=== PATIENT | male | born 1945 | race Caucasian/White ===

== ENCOUNTER → 2018-11-29 10:21 | Outpatient (CLI) | payer MEDICARE | END | disposition home or self-care (01) | LOC: D.LABREF 10:21 | PROVIDERS: ATTEND Orthopaedic Surgery | DX: M19.011 Primary osteoarthritis, right shoulder (principal) ==

== ENCOUNTER 2018-12-03 17:01 | Inpatient (IN) | payer MEDICARE, OTHER ==
[~2018-12-03] VITALS: Ht 177.8 cm; Wt 108.9 kg
[2018-12-20] MEDS ORDERED: LIPITOR10 MG PO (08:28)
[2018-12-20] MEDS ORDERED: PLAVIX75 MG PO (08:28)
[2018-12-20] MEDS ORDERED: DILTIAZEM 24HR120 M3 PO (08:29)
[2018-12-20] MEDS ORDERED: GLUCOPHAGE850 MG PO (08:30)
[2018-12-20] MEDS ORDERED: COZAAR25 MG PO (08:30)
[2018-12-20] MEDS ORDERED: LOVENOX30 MG/0.3 SC (08:31)
[2018-12-20 09:49] LABS: CALC OSMOLALITY 278 mosm/kg (275-300); CALCIUM 8.6 mg/dL (8.5-10.1); CARBON DIOXIDE 29.8 mmol/L (21.0-32.0); CHLORIDE - SERUM 103 mmol/L (98-107); CREATININE - SERUM 0.8 mg/dL (0.6-1.3); GLUCOSE 107 mg/dL (74-106); POTASSIUM - SERUM 4.5 mmol/L (3.5-5.1); SODIUM 140 mmol/L (136-145); UREA NITROGEN 12 mg/dL (7-18); eGFR NON AFRICAN AMERICAN > 90 mL/min (90-120)
[2018-12-20 10:04] LABS: BASOPHILS 0.7 % (0-2); EOSINOPHILS 3.9 % (0-7); HEMATOCRIT 51.9 % (42.0-54.0); HEMOGLOBIN 17.5 g/dL (13.5-17.5); IMMATURE GRANULOCYTES 0.6 % (0-5); LYMPHOCYTES 20.8 % (15-50); MCH 31.4 pg (26.0-34.0); MCHC 33.7 g/dL (31.0-37.0); MEAN PLATELET VOLUME 9.3 fL (7.4-10.4); MONOCYTES 12.1 % (2-11); NEUTROPHILS 61.9 % (40-80); PLATELET COUNT 226 10x3/uL (130-400); RBC 5.58 10x6/uL (4.20-6.10); RDW 13.2 % (11.5-14.5)
[2018-12-20 10:09] LABS: APPEARANCE CLEAR (CLEAR); BILIRUBIN NEGATIVE (NEGATIVE); COLOR YELLOW (YELLOW); GLUCOSE NEGATIVE (NEGATIVE); KETONE NEGATIVE (NEGATIVE); NITRITE NEGATIVE (NEGATIVE); PROTEIN NEGATIVE (NEGATIVE); SPECIFIC GRAVITY 1.015 (1.005-1.020); UROBILINOGEN NORMAL (NORMAL)
[2018-12-20 11:16] LABS: APTT 30.9 SECONDS (22.8-39.4); INR 0.93 (0.85-1.17)
[2018-12-21] VITALS (16 sets, daily range): BP systolic 112–147; BP diastolic 51–88; BMI 33.7; BMI 34.5
--- NOTE | 2018-12-21 13:55 | OP ---
PATIENT NAME: CHAPARRO GARLAND MEDICAL RECORD: [id number] :49 LOCATION:D.[facility] ADMISSION DATE:12/21/18 SURGEON: MATT ALTMAN DO DATE OF OPERATION: 12/21/2018 PROCEDURE PERFORMED: Right reverse total shoulder arthroplasty. PREOPERATIVE DIAGNOSIS: Right shoulder rotator cuff arthropathy. POSTOPERATIVE DIAGNOSIS: Right shoulder rotator cuff arthropathy. INDICATIONS: Mr. Garland is a 73-year-old male with right shoulder pain and loss of strength for quite some time. He was tired of dealing with it and wanted something done. On x-ray, he had a very high riding humeral. It was up to the acromion and almost articulating with it. I informed him that if his rotator cuff is gone then we would need to do a reverse total shoulder and the risk of it would be infection, bleeding, fracture, damage to nerves and vessels, need for further surgery, blood clots, and even , failure of implant. He was okay with that and signed the consent. SURGEON: Matt Altman DO STICKER OPERATOR: Jaswinder Tariq, advanced nurse practitioner. DESCRIPTION OF PROCEDURE: The patient was given a block by anesthesia in the preoperative area and taken to the operative suite, laid in supine position, sedated and intubated. The patient was given 2 grams Ancef and 80 mg of gentamicin preoperatively. The patient was then placed in beach chair position and he was prepped and draped in sterile fashion. A timeout was performed and everyone was in agreement with the correct side, site, patient and procedure. We then began over the deltopectoral interval first with a 10-blade and then with a plasma blade. Dissection was made down to the deltopectoral interval and this was opened up and the humerus was exposed. The proximal centimeter of the pec was removed. Once the humeral head was exposed, the canal was entered and clavipectoral fascia had been excised as well and the humeral head was exposed. The guide was then put in through the humeral canal and then the humeral head was cut. When the humeral head was then cut, the bone was removed and glenoid was exposed. Labrum was removed off the glenoid and the centering pin was used and then a reamer. The baseplate was put on and 3 peripheral screws were placed. A 40 central screw with 22, 26, and 18 peripheral screws were placed and secured in place. The lateralized sphere was then impacted on and screwed into place. The humeral neck was then recut and began broaching up to 5. This was trialed with a tray and a 6 poly, fit very well. There was good appropriate amount of laxity in the conjoined tendon and the deltoid fibers and no shucking. This was then dislocated and removed and the site was irrigated and then the actual implant was impacted into place. A 6 poly was then placed and the shoulder was reduced and again had good range of motion and conjoined tendon was taut as well as the deltoid fibers. The shoulder was then irrigated with Bactisure and normal saline, a liter of each and then Surgicel powder, tobramycin and vancomycin powder were placed and the drain was placed. The skin was then closed with 2-0 Vicryl in inverted interrupted fashion, 4-0 Monocryl ran on the skin and Prineo glue on the skin and then the drain was secured with 2 Tegaderms. The patient was then awakened and taken to recovery room in stable condition. OPERATIVE REPORT [id number] CHAPARRO GARLAND BLOOD LOSS: Approximately 200 mL. COMPLICATIONS: None. TRANSINT:[id number] Voice Confirmation ID: [id number] DOCUMENT ID: [id number] MATT ALTMAN DO at 1355 CC: [id number] DICTATION DATE: 12/21/18 1209 CHILD WATCH ATTENDANT: 12/21/18 1346 ADM IN [place] [id number] [place] [address]
[2018-12-22 01:12] VITALS: BP 136/80
[2018-12-22 05:03] VITALS: BP 145/81
--- NOTE | 2018-12-22 05:19 | NUR ---
I have reviewed this patient and I concur with the Shift Assessment completed by the Licensed Practical Nurse today this shift.
[2018-12-22 05:42] LABS: BASOPHILS 0.2 % (0-2); EOSINOPHILS 0 % (0-7); HEMATOCRIT 46.6 % (42.0-54.0); HEMOGLOBIN 15.4 g/dL (13.5-17.5); IMMATURE GRANULOCYTES 0.3 % (0-5); LYMPHOCYTES 6.3 % (15-50); MCH 30.7 pg (26.0-34.0); MCV 92.8 fL (80.0-100.0); MEAN PLATELET VOLUME 9.2 fL (7.4-10.4); MONOCYTES 8.1 % (2-11); NEUTROPHILS 85.1 % (40-80); PLATELET COUNT 188 10x3/uL (130-400); RBC 5.02 10x6/uL (4.20-6.10); RDW 13.3 % (11.5-14.5)
[2018-12-22 06:07] LABS: CALC OSMOLALITY 284 mosm/kg (275-300); CARBON DIOXIDE 27.1 mmol/L (21.0-32.0); CHLORIDE - SERUM 106 mmol/L (98-107); CREATININE - SERUM 0.8 mg/dL (0.6-1.3); POTASSIUM - SERUM 4.5 mmol/L (3.5-5.1); SODIUM 141 mmol/L (136-145); UREA NITROGEN 9 mg/dL (7-18); eGFR NON AFRICAN AMERICAN > 90 mL/min (90-120)
[2018-12-22 06:15] LABS: GLUCOSE 180 mg/dL (74-106)
[2018-12-22 06:16] LABS: WBC 14.5 10x3/uL (4.8-10.8)
--- NOTE | 2018-12-22 07:57 | NUR ---
PT RESTING IN BED. DENIES PAIN. NO S/S OF ACUTE DISTRESS. CL IN PLACE.
[2018-12-22 09:46] VITALS: BP 131/85
[2018-12-22 12:16] VITALS: Ht 177.8 cm; Wt 108.9 kg
[2018-12-22 13:49] VITALS: BP 118/60
--- NOTE | 2018-12-22 16:22 | MORECARE ---
CASE MANAGEMENT DISCHARGE SUMMARY PATIENT: CHAPARRO COLON UNIT: [id number] ADM DATE: 12/21/18 AGE: 73 : 47 SEX: M ROOM/BED: D.2210 AUTHOR: PATRICIA NEAL PHYSICIAN: REFERRING PHYSICIAN: MATT ALTMAN DO DATE OF SERVICE: 12/22/18 Discharge Plan Patient Name: CHAPARRO COLON Facility: [facility]:[place] : 1945 Planned Disposition: Home or Self Care Anticipated Discharge Date: Discharge Date: Expected LOS: Initial Reviewer: [email or web address] Initial Review Date: 12/21/2018 Generated: 12/22/18 5:21 pm Patient Name: CHAPARRO COLON Page [id number] at 1622 All edits/amendments must be made on the electronic document DICTATION DATE: 12/22/181620 COMMERCIAL BAKER HELPER: DANIELLE 12/22/181620 RPT#: [id number] DC DATE: STATUS: ADM IN [facility] [address] [place] [address] END OF REPORT
--- NOTE | 2018-12-22 16:31 | MORECARE ---
CASE MANAGEMENT DISCHARGE SUMMARY PATIENT: CHAPARRO COLON UNIT: [id number] ADM DATE: 12/21/18 AGE: 73 : 47 SEX: M ROOM/BED: D.2210 AUTHOR: VALDOC PHYSICIAN: REFERRING PHYSICIAN: MATT ALTMAN DO DATE OF SERVICE: 12/22/18 Discharge Plan Patient Name: CHAPARRO COLON Facility: [facility]:[place] : 1945 Planned Disposition: Home or Self Care Anticipated Discharge Date: Discharge Date: Expected LOS: Initial Reviewer: [email or web address] Initial Review Date: 12/21/2018 Generated: 12/22/18 5:30 pm Comments DCP- Discharge Planning Updated by [email or web address]: Fernanda Green on 12/22/18 3:[address] Patient Name: CHAPARRO COLON Admission Status: Elective Accout number: [id number] Admission Date: 12-21-2018 : 1945 Admission Diagnosis: Attending: MATT ALTMAN Current LOS: 1 Anticipated DC Date: Planned Disposition: Home or Self Care Primary Insurance: [employer] CHOICE PPO MCR [employer] Discharge Planning Comments: CM met with patient to complete initial dc planning assessment. CM educated patient on the CM role and verbal consent given by patient to complete assessment. Patient lives at home with his where he is independent with his care. At discharge patient plans to return home and feels this is a safe discharge. CM discussed availability of home health, rehab services, and medical equipment. His son will be the one to drive him home tomorrow. He uses a CPAP at home "he owns it". Patient denied known discharge needs at this time. CM will continue to follow and will assist as needed with dc plans/needs. Business Management Intern: Fernanda Green DCPIA - Discharge Planning Initial Assessment Updated by [email or web address]: Fernanda Green on 12/22/18 4:27 pm * Is the patient Alert and Oriented? Yes * How many steps to enter\\exit or inside your home? * PCP DR DOVER * Pharmacy [facility] * Preadmission Environment Home with Family * ADLs Independent * Equipment None * List name and contact numbers for known caregivers / representatives who currently or will assist patient after discharge: ODILON Little) [phone] * Verbal permission to speak to the caregivers and representatives has been obtained from the patient. Yes * Community resources currently utilized None * Additional services required to return to the preadmission environment? No * Can the patient safely return to the preadmission environment? Yes * Has this patient been hospitalized within the prior 30 days at any hospital? No Last DP export: 12/22/18 3:22 p Patient Name: CHAPARRO COLON Page [id number] at 1631 All edits/amendments must be made on the electronic document DICTATION DATE: 12/22/18 163 CONSERVATION COORDINATOR: DANIELLE 12/22/18 163 RPT#: [id number] DC DATE: STATUS: ADM IN [facility] [address] [place] [address] END OF REPORT
[2018-12-22] MEDS ORDERED: KEFLEX500 MG PO (17:19)
[2018-12-22] MEDS ORDERED: OXYCODONE HCL5 M1 PO (17:19)
[2018-12-22 17:47] VITALS: BP 111/67
--- NOTE | 2018-12-22 18:08 | NUR ---
DC INSTRUCTIONS AND EDUCATION DONE WITH PT AND . DC IV WITH TIP INTACT. BRACE APPLIED TO R ARM. ALL BELONGINGS CARRIED DOWN BY . NO S/S OF ACUTE DISTRESS. BRADDISHER WHEELED PT OFF THE FLOOR.
--- NOTE | 2018-12-23 08:15 | MORECARE ---
CASE MANAGEMENT DISCHARGE SUMMARY PATIENT: CHAPARRO COLON UNIT: [id number] ADM DATE: 12/21/18 AGE: 73 : 47 SEX: M ROOM/BED: D.2210 AUTHOR: VALDOC PHYSICIAN: REFERRING PHYSICIAN: MATT ALTMAN DO DATE OF SERVICE: 12/23/18 Discharge Plan Patient Name: CHAPARRO COLON Facility: [facility]:[place] : 1945 Planned Disposition: Home or Self Care Anticipated Discharge Date: Discharge Date: 12/22/2018 Expected LOS: 0 Initial Reviewer: [email or web address] Initial Review Date: 12/21/2018 Generated: 12/23/18 9:15 am Comments DCP- Discharge Planning Updated by [email or web address]: Fernanda Green on 12/22/18 3:[address] Patient Name: CHAPARRO COLON Admission Status: Elective Accout number: [id number] Admission Date: 12-21-2018 : 1945 Admission Diagnosis: Attending: MATT ALTMAN Current LOS: 1 Anticipated DC Date: Planned Disposition: Home or Self Care Primary Insurance: [employer] CHOICE PPO MCR [facility] Discharge Planning Comments: CM met with patient to complete initial dc planning assessment. CM educated patient on the CM role and verbal consent given by patient to complete assessment. Patient lives at home with his where he is independent with his care. At discharge patient plans to return home and feels this is a safe discharge. CM discussed availability of home health, rehab services, and medical equipment. His son will be the one to drive him home tomorrow. He uses a CPAP at home "he owns it". Patient denied known discharge needs at this time. CM will continue to follow and will assist as needed with dc plans/needs. Human Resources Associate: Fernanda Green DCPIA - Discharge Planning Initial Assessment Updated by [email or web address]: Fernanda Green on 12/22/18 4:27 pm * Is the patient Alert and Oriented? Yes * How many steps to enter\\exit or inside your home? * PCP DR DOVER * Pharmacy [facility] * Preadmission Environment Home with Family * ADLs Independent * Equipment None * List name and contact numbers for known caregivers / representatives who currently or will assist patient after discharge: ODILON () [phone] * Verbal permission to speak to the caregivers and representatives has been obtained from the patient. Yes * Community resources currently utilized None * Additional services required to return to the preadmission environment? No * Can the patient safely return to the preadmission environment? Yes * Has this patient been hospitalized within the prior 30 days at any hospital? No Last DP export: 12/22/18 3:31 p Patient Name: CHAPARRO COLON Page 57766 at 0815 All edits/amendments must be made on the electronic document DICTATION DATE: 12/23/18814 STRINGS TEACHER: DANIELLE 12/23/18814 RPT#: [id number] DC DATE:12/22/18 STATUS: DIS IN [facility] [address] [place] [address] END OF REPORT
== END 2018-12-22 18:09 | disposition home or self-care (01) | DRG 483 ==
LOC: D.MS 12-21 07:05 → D.SDCHOLD 12-21 07:05 → D.MS 12-21 12:58
PROVIDERS: Internal Medicine Nephrology; ADMIT Orthopaedic Surgery; ATTEND Orthopaedic Surgery
PROC: 0RRJ00Z Replacement of Right Shoulder Joint with Reverse Ball and Socket Synthetic Substitute, Open Approach (ICD-10-PCS; principal; 2018-12-21 09:00)
DX: M75.101 Unspecified rotator cuff tear or rupture of right shoulder, not specified as traumatic (principal); E11.9 Type 2 diabetes mellitus without complications; I10 Essential (primary) hypertension; I25.10 Atherosclerotic heart disease of native coronary artery without angina pectoris

== ENCOUNTER 2020-08-16 09:07 | Day surgery (SDC) | payer OTHER ==
[~2020-08-16] VITALS: Ht 177.8 cm; Wt 112.0 kg
--- NOTE | ~2020-08-16 | TEE ---
PATIENT:CHAPARRO COLON MEDICAL RECORD: [id number] LOCATION:[facility] AGE OF PATIENT: 75 ADMISSION DATE: 08/16/20 SEX: M REFERRING PHYSICIAN: INTERPRETING PHYSICIAN: EDUARDO AHUJA MD TRANSESOPHAGEAL ECHOCARDIOGRAM Date: 08/16/20 VIDA CHARGE Y INDICATIONS: ASSESS AORTIC VALVE HX OF AVR PREMEDICATIONS: PATIENT'S RESPONSE PROCEDURE DOPPLER MEASUREMENTS: LVIT LA PA RA LVOT RVOT Asc. Ao AV Gradient Peak AV Mean AV Area MV Gradient Peak MV Mean MV Area INTERPRETATION: Doppler: 2-D: COLOR FLOW DOPPLER NORMAL SALINE STUDY: MISCELLANOUS: DIAGNOSIS: PLAN: Paymaster Of Purses:3 Dr. Sanches Pull Tab Dealer: Aj CHO COMMENTS: DATE OF SERVICE: 08/16/2020 TRANSESOPHAGEAL NOTE TECHNIQUE: After general sedation via TIVA via anesthesia, the transesophageal Omniplane probe was placed in the distal esophagus and proximal stomach without difficulty. FINDINGS: As follows: LVH is present. LV internal dimensions were normal. TRANSESOPHAGEAL ECHOCARDIOGRAM REPORT [id number] CHAPARRO COLON Wall motion is normal. EF is greater than or equal to 55%. Tissue prosthetic aortic valve was noted with good valve excursion. No evidence of thrombus. No significant AI. Left atrium appears normal. Mitral valve appears normal. Mild MR. Right-sided chambers appear grossly normal. Trace to mild TR by color flow imaging. TRANSINT:[id number] Voice Confirmation ID: [id number] DOCUMENT ID: [id number] EDUARDO AHUJA MD CC: [id number] DICTATION DATE: 08/16/20 1138 THERMODYNAMICS ENGINEER: 08/17/20 0723 [facility] [place] 08/16/20 [place] [id number] [place] [id number]
--- NOTE | ~2020-08-16 | HEMODYNAMI ---
PATIENT:CHAPARRO COLON MEDICAL RECORD: [id number] : [birth year] LOCATION:[facility] ADMISSION DATE: 08/16/20 Generatedon:111:42 Patient name: CHAPARRO COLON Patient #: [id number] SSN: [id number] : 1945 Date of study: 08/16/2020 Page: Of Hemodynamic Procedure Report Patient Data Patient Demographics Procedure consent was obtained First Name: CHAPARRO Gender: Male Last Name: ISAIAH : 1945 Middle Initial: L Age: 75 year(s) Patient #: [id number] Race: SSN: [id number] Additional ID: [id number] Contact details Address: [address] [place] [address] State: [facility] [place] Zip code: [address] Past Medical History Allergies: No known allergies Admission Admission Data Admission Date: 08/16/2020 Admission Time: 9:07 Arrival Date: 08/16/2020 Arrival Time: 0:00 Admit Source: Other Insurance Payor: Private health insurance [facility] #: [id number] Height (in.): 70 BSA: 2.27 (m2) Height (cm.): 177.8 BMI: 35.01 (kg/m2) Weight (lbs.): 244 Weight (kg.): 110.68 Lab Results Lab Result Date: 08/16/2020 Lab Result Time: 0:00 Biochemistry Name Units Result Min Max BUN mg/dl 11 --(-*--)-- 7 18 Creatinine mg/dl 0.9 --(-*--)-- 0.6 1.3 eGFR ml/min 88.58184 -*(----)-- 90 120 NONAFRICAN CBC Name Units Result Min Max Hematocrit % 54.4 --(----)*- 42 54 Hemoglobin g/dl 17.6 --(----)*- 13.5 17.5 Procedure Procedure Types Cath Procedure Diagnostic Procedure VIDA Procedure Description Procedure Date Procedure Date: 08/16/2020 Procedure Start Time: 10:39 Procedure Staff Name Function Beto Ruiz MD Performing Physician Bacilio Puente RN Nurse Smiley Jimenez RT Monitor Julianna Bedolla RT Scrub Ren Buchanan CRNA Additional personnel Ubaldo Carrillo Gang Tailer Procedure Data Cath Procedure Estimated blood loss: 0 ml Procedure Complications No complications Procedure Medications Medication Administration Route Dosage 0.9% NaCl I.V. 100 ml/hr Oxygen etCO2 Nasal cannula 5 l/min Refer to Anesthesia Notes for Sedation Medications Hemodynamics Rest BSA: 2.27 (m2) HGB: 17.6 (g/dl) O2 Consumption: Estimated: 272.52 (ml/min) O2 Consumption indexed: Estimated:120.05 (ml/min/m) Heart Rate: 83 (bpm) Snapshots Pre Cath Intra NCS Post Cath Vital Signs Time Heart Resp SPO2 etCO2 NIBP (mmHg) Rhythm Pain Sedation Rate (ipm) (%) (mmHg) Status Level (bpm) 11:19:04 74 12 97 34.4 153/82(133) NSR 0 (11) 10(A) , No pain 11:23:16 76 16 97 32.9 151/83(123) NSR 0 (11) 10(A) , No pain 11:27:26 85 15 97 34.4 144/76(107) NSR 0 (11) 10(A) , No pain 11:31:33 97 14 93 12.7 156/93(115) NSR 0 (11) 8(A) , No pain 11:35:53 95 12 92 26.2 149/63(104) NSR 0 (11) 9(A) , No pain 11:41:18 88 24 95 21.7 135/67(95) NSR 0 (11) 9(A) , No pain Medications Time Medication Route Dose Verified Delivered Reason Notes Effective ness by by 11:19:26 0.9% NaCl I.V. 100 Bacilio Bacilio Per ml/hr Cindi Puente physician RN RN 11:19:38 Oxygen etCO2 5 Bacilio Bacilio for low Nasal l/min Cindi Puente 02 sats cannula RN RN 11:27:47 Refer to Bacilio Bacilio for Anesthesia Cindi Puente sedation Notes for RN RN Sedation Medications Procedure Log Time Note 10:41:23 Informed consent obtained and on chart 10:41:39 Arrival Date: 08/16/2020 12:00:00 AM 10:41:40 Admit Source: Other 10:41:42 Insurance Payor : Private health insurance 10:42:19 Patient Height : 70 inches 10:42:22 Patient Weight : 244 lbs 10:44:57 ACC Patient presents with Stable Angina CCS Anginal Class 2--Slight limitation of ordinary activity. 10:45:01 Procedure Status VIDA. 10:45:03 Time tracking: Regular hours (M-F 7:00 - 5:00) 10:45:13 Plan of Care:Hemodynamics will remain stable., Cardiac rhythm will remain stable., Comfort level will be maintained., Respiratory function will remain adequate., Patient/ family verbilizes understanding of procedure., Procedure tolerated without complication., Recovers from procedure without complications.. 10:45:21 H&P Date Dictated: 08/07/2020 Within 30 days and on chart.. 10:45:24 Family in waiting room. 10:45:25 Patient NPO since Midnight. 10:45:33 Patient allergic to No known allergies 10:46:46 Lab Result : Creatinine 0.9 mg/dl 10:46:46 Lab Result : BUN 11 mg/dl 10:46:46 Lab Result : eGFR NONAFRICAN 88.98120 ml/min 10:46:46 Lab Result : Hematocrit 54.4 % 10:46:46 Lab Result : Hemoglobin 17.6 g/dl 11:09:08 Bacilio Puente RN sent for patient. Start room use. 11:13:39 Patient received from Pre/Post Procedure Room to CCL 2 Alert and oriented. Tansferred to table in Supine position. 11:13:40 Warm blankets applied, and diane hugger turned on for patient comfort. 11:13:41 Correct patient and procedure confirmed by team. 11:13:42 ECG and BP/O2 sat monitors applied to patient. 11:13:45 Pre-procedure instructions explained to patient. 11:13:46 Pre-op teaching completed and patient verbalized understanding. 11:13:47 Is the patient allergic to Iodine/contrast media? No. 11:13:49 Was the patient premedicated? No 11:14:17 Alarms reviewed by RConner N. 11:14:18 Sharps counted by scrub and verified by R.N. 11:14:25 Stress Test: no; N/A ? 11:14:27 Lab results completed and on chart. 11:14:35 Patient pain scale 0/10 ?. 11:14:41 IV patent on arrival in left antecubital with 0.9% NaCl at [facility]. 11:15:09 ----Pre-sedation anethsthesia assessment.---- 11:15:20 Previous problem with sedation/anesthesia? No ? 11:15:29 Snore? Yes 11:15:30 Sleep apnea? Yes 11:15:45 Is patient on blood thinner?Yes 11:15:48 ACC The patient was administered the following blood thiners within the last 24 hours: ACCPlavix 11:15:50 Patient diabetic? Yes. 11:15:54 If diabetic: On Metformin? Yes 11:15:59 If on Metformin: Last Dose? 08/16/2020 11:16:28 Deviated septum? No 11:16:29 Opens mouth fully? Yes 11:16:30 Sticks out tongue? Yes 11:16:33 Airway obstruction? No ? 11:16:36 Dentures? No ? 11:17:22 Ren Buchanan CRNA present and monitoring patient for TIVA. 11:17:53 Full Disclosure recording started 11:17:55 Vital chart was started 11:17:58 Baseline sample Acquired. 11:18:10 Rhythm: sinus rhythm 11:19:26 0.9% NaCl 100 ml/hr I.V. was administered by Bacilio Puente RN; Per physician; Verbal order read back and verified. 11:19:38 Oxygen 5 l/min etCO2 Nasal cannula was administered by Bacilio Puente RN; for low 02 sats; Verbal order read back and verified. 11:25:44 Ubaldo Carrillo Finishing Lab Technician present for VIDA. 11:27:07 --------ALL STOP TIME OUT------ 11:27:07 Final Timeout: patient, procedure, and site verified with staff and physician. All members of the team are in agreement. 11:27:12 Fire Safety Assessment: A--An alcohol-based skin anteseptic being used preoperatively., C--Open oxygen or nitrous oxide is being used., D--An ESU, laser, or fiber-optic light is being used. 11:27:14 Physical assessment completed. ASA score P 2 - A patient with mild systemic disease as per Beto Ruiz MD. 11:27:21 Sedation plan: TIVA Medication:Propofol 11:27:32 VIDA 11:27:47 Refer to Anesthesia Notes for Sedation Medications was administered by Bacilio Puente RN; for sedation; Verbal order read back and verified. 11:29:27 VIDA started. 11:34:53 VIDA completed. 11:35:31 Procedure ended.(Physican Out) 11:36:00 Post procedure rhythm: unchanged. 11:36:03 Estimated blood loss: 0 ml 11:36:04 Post procedure instruction explained to patient.Patient verbalizes understanding. 11:36:04 Patient needs reinforcement of post procedure teaching. 11:36:44 Procedure and supply charges have been captured, reviewed, submitted and are correct. 11:36:48 Procedure Complication : No complications 11:37:04 VIDA Findings: other (see MD operative note) 11:37:08 Report given to Pre/Post Procedure Room. 11:37:12 Patient transfered to Pre/Post Procedure Room with Stretcher. 11:37:17 End room use (Document Last) 11:37:37 End room use (Document Last) 11:37:53 End room use (Document Last) 11:42:21 Vital chart was stopped Signature Audit [place] Stage Time Signature Unsigned Intra-Procedure 08/16/2020 Smiley Jimenez 11:37:37 AM RT(R) Intra-Procedure 08/16/2020 Bacilio 11:37:53 AM Cindi AMAYA Intra-Procedure 08/16/2020 Beto Lara 11:42:19 AM Victorino BARKSDALE Signatures Performing Physician : Signature : Beto Ruiz MD Date : Time : Nurse : Bacilio Puente Signature : RN Date : Time : Monitor : Smiley Young Signature : RT Date : Time : [address] [place] [address]
[~2020-08-16 09:07] MED LIST: COZAAR25 MG PO; DILTIAZEM 24HR120 M3 PO; GLUCOPHAGE850 MG PO; KEFLEX500 MG PO; LIPITOR10 MG PO; LOVENOX30 MG/0.3 SC; OXYCODONE HCL5 M1 PO; PLAVIX75 MG PO
[2020-08-16] MEDS ORDERED: GLUCOPHAGE1000 MG PO (09:37)
[2020-08-16] MEDS ORDERED: TRAZODONE HCL150 MG PO (09:39)
[2020-08-16] MEDS ORDERED: DONEPEZIL HCL10 MG PO (09:39)
[2020-08-16] MEDS ORDERED: GLIPIZIDE5 MG PO (09:40)
[2020-08-16 09:53] VITALS: BP 155/78; Ht 177.8 cm; Wt 112.0 kg
[2020-08-16 10:10] LABS: BASOPHILS 1.2 % (0-2); EOSINOPHILS 2.9 % (0-7); HEMATOCRIT 54.4 % (42.0-54.0); HEMOGLOBIN 17.6 g/dL (13.5-17.5); LYMPHOCYTES 13.6 % (15-50); MCH 26.9 pg (26.0-34.0); MCHC 32.4 g/dL (31.0-37.0); MEAN PLATELET VOLUME 7.4 fL (7.4-10.4); MONOCYTES 10.9 % (2-11); NEUTROPHILS 71.4 % (40-80); RDW 15.8 % (11.5-14.5); WBC 10.2 10x3/uL (4.8-10.8)
[2020-08-16 10:13] LABS: PLATELET COUNT 262 10x3/uL (130-400); RBC 6.56 10x6/uL (4.20-6.10)
[2020-08-16 10:17] LABS: CALC OSMOLALITY 272 mosm/kg (275-300); CALCIUM 8.3 mg/dL (8.5-10.1); CARBON DIOXIDE 24.8 mmol/L (21.0-32.0); CHLORIDE - SERUM 103 mmol/L (98-107); CREATININE - SERUM 0.9 mg/dL (0.6-1.3); GLUCOSE 138 mg/dL (74-106); POTASSIUM - SERUM 4.6 mmol/L (3.5-5.1); SODIUM 136 mmol/L (136-145); UREA NITROGEN 11 mg/dL (7-18); eGFR NON AFRICAN AMERICAN 88 mL/min (90-120)
--- NOTE | 2020-08-16 11:50 | NUR ---
PT REC'D TO CATH RECOVERY ROOM 3 VIA STRETCHER. MONITORS ESTAB. AT BS. SEE CHIEF ENGINEER PRODUCTION FLOWSHEETS. ALARMS ON AND C/L IN REACH.
--- NOTE | 2020-08-16 12:05 | NUR ---
PT SITTING UP WATCHING TV, VSS. DENIES NEEDS, VERBALIZES UNDERSTANING OF POST-OP POC, PLAN FOR D/C HOME AT 1300. ALARMS ON AND C/L IN REACH.
--- NOTE | 2020-08-16 12:40 | NUR ---
DR. AHUJA IN TO SEE PT, UPDATED PT AND . VSS. PT DENIES PAIN OR NEEDS.
--- NOTE | 2020-08-16 12:53 | NUR ---
ALL DISCHARGE INSTRUCTIONS REVIEWED WITH PT AND HIS INCLUDING RESTRICTIONS, MEDS AND F/U APPT. BOTH VERBALIZE UNDERSTANDING. PIV D/C'D INTACT, DSG APPLIED. PT ALLOWED UP TO GET DRESSED AND GO TO BR INDEPENDENTLY.
--- NOTE | 2020-08-16 13:00 | NUR ---
PT DISCHARGED TO PRIVATE VEHICLE WITH ALL PAPERWORK AND BELONGINGS. PT REFUSED ANYTHING TO EAT OR DRINK PRIOR TO D/C.
== END 2020-08-16 13:00 | disposition home or self-care (01) ==
LOC: D.CATH 09:07
PROVIDERS: ATTEND Internal Medicine Interventional Cardiology
DX: I35.0 Nonrheumatic aortic (valve) stenosis (principal); I25.10 Atherosclerotic heart disease of native coronary artery without angina pectoris; I48.91 Unspecified atrial fibrillation; I10 Essential (primary) hypertension; E11.9 Type 2 diabetes mellitus without complications; Z95.4 Presence of other heart-valve replacement